=== PATIENT | male | born 1930 | race African-American/Black ===

== ENCOUNTER 2017-06-04 17:31 | Emergency (ER) | payer MEDICARE, MEDICAID ==
[~2017-06-04] VITALS: Ht 160 cm; Wt 78.0 kg
[~2017-06-04 17:31] MED LIST: AMIODARONE HCL 50MG/ML 3ML VIAL IV ONE; DEXTROSE 50% WATER 50ML SYRINGE IV ONE; EPINEPHRINE 0.1MG/ML (1:10,000) 10ML SYR ONE; SODIUM BICARBONATE 7.5% 0.9 MEQ/ML 50ML SYR IV ONE
[2017-06-04 17:32] VITALS: BP 0/0
[2017-06-04] MEDS ORDERED: FURO20TA4 PO (17:38)
== END 2017-06-04 20:40 | disposition expired ==
LOC: ER 17:31
DX: I46.9 Cardiac arrest, cause unspecified (principal); R55 Syncope and collapse; E11.65 Type 2 diabetes mellitus with hyperglycemia; Z85.118 Personal history of other malignant neoplasm of bronchus and lung
CPT/HCPCS: 92950; 99285; J0282; J3490